=== PATIENT | male | born 1955 | race Caucasian/White ===

== ENCOUNTER 2018-09-03 01:12 | Observation (INO) | payer OTHER ==
[~2018-09-03] VITALS: Ht 165.1 cm; Wt 71.0 kg
[2018-09-03] VITALS (14 sets, daily range): BP systolic 123–169; BP diastolic 66–83; PULSE 81–93; RESP 18–20; Ht 165.1 cm; Wt 71.0 kg
[2018-09-03] MEDS ORDERED: GLUCOSE GEL 15 GRAM TUBE PO PRN ×2 (06:00)
[2018-09-03] MEDS ORDERED: ACETAMINOPHEN 325 MG TAB PO PRN (06:00)
[2018-09-03] MEDS ORDERED: DEXTROSE 50% 50 ML SYRINGE IV PRN ×2 (06:00)
[2018-09-03] MEDS ORDERED: GLUCOSE GEL 15 GRAM TUBE BUCCAL PRN (06:00)
[2018-09-03] MEDS ORDERED: GLUCAGON 1 MG INJ IM PRN (06:00)
[2018-09-03] MEDS ORDERED: NACL 0.9% 3 ML SYG IV SCH (06:00)
[2018-09-03] MEDS ORDERED: ONDANSETRON 4 MG INJ IV PRN (06:00)
--- NOTE | 2018-09-03 06:38 | HP ---
Date/Time of Note Date/Time of Note DATE: 09/03/18 TIME: 06:28 Assessment/Plan VTE Prophylaxis SCD applied (from Nsg): Yes Pharmacological prophylaxis: NA/contraindicated Pharm contraindication: low risk/ambulating Assessment/Plan Hospital Course This is a 62-year-old male being admitted to the telemetry floor for observation for: #1 multiple episodes of syncope: Neurocardiogenic versus cardiogenic versus orthostatic versus hyperglycemia versus secondary to EtOH: Patient did present with elevated blood sugars and sodium of 127. Upon repeat patient's blood sugars did improve and patient sodium did increase as well. At the current time will monitor the patient on telemetry. Will check an EKG in the a.m. Will farshad ck repeat CBC and BMP. Given the fact that the patient's sodium did increase from 127-135 and a period of what appears to be approximately 5 hours I will not start any other fluids at the current time. Monitor the patient closely. Will check an echocardiogram. Check orthostatic vitals. Check carotid Dopplers. We will also monitor for EtOH withdrawal and check ethanol level. Fall precautions. #2 Uncontrolled diabetes mellitus: Patient did present with blood sugars in the 300s. Will check hemoglobin A1c. Insulin sliding scale. Initiate blood sugar regimen if indicated. #3 dehydration: Secondary possibly to elevated blood sugars and/or alcohol use. Patient did receive IV fluid hydration at the transfer facility. At the current time will not give any further IV fluids given that the fact that the patient's sodium did correct fairly quickly. Carb controlled diet. #4 hyponatremia: Patient did initially present with a sodium of 127 which then subsequently corrected to 135 and approximately 5 hours. Will repeat labs at the current time. Will avoid any further IV fluids at the current time. #5 EtOH abuse: While patient reports that he only drinks twice a week he does report that he drinks two 40ounce beers when he does drink. Will check ethanol level. Thiamine folate MVI. PRN Ativan monitor for signs of withdrawal and consider Librium if indicated #6 DVT GI prophylaxis: SCDs, no GI prophylaxis indicated Further treatment strategy will be implemented as per the clinical course HPI/ROS Admit Date/Time Admit Date/Time Sep 03, 2018 at 04:32 Hx of Present Illness Chief complaint: Syncope This is a 62-year-old male with a past medical history of diabetes mellitus who presented to [facility] with symptoms of syncope. Patient reported that he had woken up and felt lightheaded and then ended up having 3 episodes of syncope. He reports that he lost consciousness for a few minutes and after that it took him a few minutes to be back to normal. He did report that prior to having the syncopal episode he did experience some lightheadedness and some shortness of breath with some pleuritic chest pain. He does report though that he has occasional chest pain and shortness of breath which are chronic. He denies any nausea vomiting or chest pressure or feelings of warmth. Denies any recent bleeding or nausea vomiting or hematochezia or melena. Upon further questioning at the bedside I did asked the patient regarding the exact episodes. Patient reports that one episode occurred as he got up from his bed and then he fell. The second episode occurred after he had urinated. He does not recall the third episode. He does report that he drinks approximately twice a week approximately two 40ounce beers. He did report that he was drinking yesterday as well. He does have a history of withdrawing from alcohol as well. He also has not been on his medications for diabetes as he has not gone back to his primary care doctor. Vitals at the transfer facility showed temperature of 96.3 Celsius/heart rate 81/respirations 18/BP 131/64/oxygen 97% on room air EKG: Normal sinus rhythm at 76 bpm, no ST or T wave changes. Old Q waves. As per ED physician documentation Chest x-rays did not show any consolidation or effusions. CT of the head: Was negative for bleed as per documentation Pertinent laboratory findings: Initial sodium was 127 followed by repeat of sodium 135 potassium 3.7 creatinine 0.62 Initial glucose 388 followed by a repeat glucose 223 D-dimer less than 0.28 TSH 2.07 urine glucose 1 greater than 1000 CBC hemoglobin 12.2/hematocrit 36.8 MCV 95.3 and platelets 253 Urinalysis: Ketones negative BNP 31 bicarb 18 Allergies: NKDA Medications: None ROS Const: As per HPI Eyes : No pain discharge or redness or change in visual acuity ENT: No pain, sore throat, congestion, congestion, dysphagia or discharge Respiratory: No shortness of breath, cough, sputum, wheezing, or pleuritic pain Cardiovascular: No chest pain, palpitation, PND, or edema GI : no change in appetite, abdominal pain, nausea, vomiting, diarrhea, constipation, or change in the color his stool Genitourinary: No dysuria, hematuria, flank pain , discharge or CVA tenderness Musculoskeletal: No joint pain, back pain, neck pain, restricted range of motion in neck or joints Skin: No rash, bruising or hives Neuro: As per HPI Endocrine: No polyuria, polydipsia, temperature intolerance Psych: No hallucination, depression, anxiety or suicidal ideation PMH/Family/Social Past Medical History Diabetes mellitus Medications Current Medications IV Flush (NS 3 ml) 3 ml PER PROTOCOL IV ; Start 09/03/18 at 06:00 Ondansetron HCl (Zofran Inj) 4 mg Q6H PRN IV NAUSEA/VOMITING; Start 09/03/18 at 06:00 Acetaminophen (Tylenol Tab) 650 mg Q6H PRN PO .PAIN 1-3 OR TEMP; Start 09/03/18 at 06:00 Diagnostic Test (Pha) (Accu-Chek) 1 ea 02 XX ; Start 09/04/18 at 02:00 Insulin Aspart (Novolog Insulin Pen) NOVOLOG *MILD* ALGORITHM WITH MEALS BEDTIME SC ; Start 09/03/18 at 08:00 Miscellaneous Information 1 ea NOTE XX ; Start 09/03/18 at 06:00 Glucose (Glutose) 15 gm Q15M PRN PO DECREASED GLUCOSE; Start 09/03/18 at 06:00 Glucose (Glutose) 22.5 gm Q15M PRN PO DECREASED GLUCOSE; Start 09/03/18 at 06:00 Dextrose (D50w Syringe) 25 ml Q15M PRN IV DECREASED GLUCOSE; Start 09/03/18 at 06:00 Dextrose (D50w Syringe) 50 ml Q15M PRN IV DECREASED GLUCOSE; Start 09/03/18 at 06:00 Glucagon (Glucagen) 1 mg Q15M PRN IM DECREASED GLUCOSE; Start 09/03/18 at 06:00 Glucose (Glutose) 15 gm Q15M PRN BUCCAL DECREASED GLUCOSE; Start 09/03/18 at 06:00 Coded Allergies: No Known Allergies (Verified Allergy, Mild, 12/04/10) Past Surgical History Past Surgical Hx: no surgical history Family History Significant Family History: no pertinent family hx Social History Alcohol Use: heavy Smoking Status: Never smoker Drug Use: none Exam/Review of Systems Vital Signs Vitals Vital Signs Date Temp Pulse Resp B/P (MAP) Pulse Ox O2 O2 Flow FiO2 Time Delivery Rate 09/03/18 93 146/73 06:12 (97) 09/03/18 98.4 20 95 Room Air 05:18 Exam Exam General: Currently sitting upright in bed in no acute distress HEENT: Atraumatic, normocephalic. The pupils are equal, round and reactive. Extraocular motor are intact Neck: Supple with full range of motion. No rigidity or meningismus Chest: Nontender Lungs: Clear to auscultation bilaterally no crackles rales or wheezing Heart: Normal S1-S2, Regular rhythm and rate. Abdomen: Soft , nontender, nondistended , bowel sounds are present. No guarding no rebound tenderness , No masses or organomegaly. No costovertebral temporal angle mass Extremities: Normal to inspection, no edema no cyanosis Neurologic: Normal mental status, speech normal, cranial nerves II through XII are intact, motor and sensory are intact, no focal weakness Psych: At the current time does not appear to be tremulous or anxious. VALERIA CORTES Sep 03, 2018 06:38
[2018-09-03] MEDS ORDERED: LORAZEPAM 2 MG INJ IV PRN (07:30)
[2018-09-03] MEDS: INSULIN ASPART [NOVOLOG] 3 ML PEN SC SCH ×4 (07:51→19:49)
[2018-09-03] MEDS: FOLIC ACID 1 MG TAB PO SCH (08:40)
[2018-09-03] MEDS: MULTIVITAMINS THERAPEUTIC TAB PO SCH (08:41)
[2018-09-03] MEDS ORDERED: THIAMINE 200 MG INJ IV SCH (09:00)
[2018-09-03] MEDS: THIAMINE 200 MG in SOD CHLORIDE 0.9% 100 ML IV SCH (09:51)
--- NOTE | 2018-09-03 10:28 | PN ---
Date/Time of Note Date/Time of Note DATE: 09/03/18 TIME: 10:25 Assessment/Plan VTE Prophylaxis Risk score (from Ns)>0 risk: 3 SCD applied (from Nsg): Yes Pharmacological prophylaxis: heparin Lines/Catheters IV Catheter Type (from Nrs): Saline Lock Urinary Cath still in place: No Assessment/Plan Hospital Course 62 yo male with uncontrolled DMII who presents with syncope, LISTE and hypo natremia Syncope: - Clearly orthostatic by history and with evidence of hypovolemia pre-disposing him to this. Troponin and d-dimer negative - Ok to monitor on telemetry 24 hours DMII with hyperglycemia: - Will start on oral agents: meformin and glimepiride and monitor LISET; - Resolved with fluids Hyponatremia: - Resolved with fluids Jose sullivan home tomorrow Result Diagram: 09/03/18 0554 09/03/18 0554 Results 24hrs Laboratory Tests Test 09/03/18 05:52 09/03/18 05:54 09/03/18 07:46 Ethyl Alcohol Level 11.0 H White Blood Count 7.2 Red Blood Count 3.96 L Hemoglobin 12.3 L Hematocrit 36.0 L Mean Corpuscular Volume 90.9 Mean Corpuscular Hemoglobin 31.1 Mean Corpuscular Hemoglobin Concent 34.2 Red Cell Distribution Width 11.8 Platelet Count 272 Mean Platelet Volume 10.0 Immature Granulocytes % 0.300 Neutrophils % 68.8 Lymphocytes % 20.0 Monocytes % 8.6 Eosinophils % 1.9 Basophils % 0.4 Nucleated Red Blood Cells % 0.0 Immature Granulocytes # 0.020 Neutrophils # 5.0 Lymphocytes # 1.4 Monocytes # 0.6 Eosinophils # 0.1 Basophils # 0.0 Nucleated Red Blood Cells # 0.0 Sodium Level 141 Potassium Level 4.2 Chloride Level 102 Carbon Dioxide Level 27 Anion Gap 12 Blood Urea Nitrogen 5 L Creatinine 0.64 Est Glomerular Filtrat Rate mL/min > 60 Glucose Level 271 H Hemoglobin A1c 11.8 H Calcium Level 8.9 Magnesium Level 1.9 Total Bilirubin 0.1 L Direct Bilirubin 0.00 Indirect Bilirubin 0.1 Aspartate Amino Transf (AST/SGOT) 49 H Alanine Aminotransferase (ALT/SGPT) 22 Alkaline Phosphatase 121 Total Protein 8.9 H Albumin 4.3 Globulin 4.60 H Albumin/Globulin Ratio 0.93 Triglycerides Level 216 H Cholesterol Level 188 LDL Cholesterol, Calculated 96 HDL Cholesterol 49 Cholesterol/HDL Ratio 3.8 Thyroid Stimulating Hormone (TSH) Pending Bedside Glucose 247 H Subjective 24 Hr Interval Summary Free Text/Dictation Orthostastic symptoms have resolved I discussed DM with him at [facility]. Has been off of medications as lost to medical care. Says he was on insluin a few years ago, then changed to orals only. Reports polydipsia, polyuria recently Exam/Review of Systems Exam Vitals Vital Signs Date Temp Pulse Resp B/P (MAP) Pulse Ox O2 O2 Flow FiO2 Time Delivery Rate 09/03/18 86 08:00 09/03/18 98.5 19 157/81 100 07:47 (106) 09/03/18 Room Air 05:18 Intake and Output 09/02/18 09/02/18 09/03/18 1515:00 23:00 07:00 IntakeIntake Total 200 ml OutputOutput Total 500 ml BalanceBalance -300 ml Constitutional: alert, oriented, well developed Psych: no complaints, nl mood/affect Head: normocephalic, atraumatic Eyes: nl conjunctiva, EOMI, nl lids, nl sclera, PERRL ENMT: nl external ears & nose, nl lips & teeth, nl nasal mucosa & septum Neck: supple, non-tender Respiratory: clear to auscultation, normal air movement Cardiovascular: regular rate and rhythm, nl pulses Gastrointestinal: soft, nl liver, spleen, non-tender Musculoskeletal: nl extremities to inspection, nl gait and stance Extremities: normal pulses Neurological: OIL PROCESS STILLMAN II-XII intact, nl mental status, nl speech, nl strength Skin: nl turgor; No rash or lesions Lymph: nl lymph nodes Results Results 24hrs Laboratory Tests Test 09/03/18 05:52 09/03/18 05:54 09/03/18 07:46 Ethyl Alcohol Level 11.0 H White Blood Count 7.2 Red Blood Count 3.96 L Hemoglobin 12.3 L Hematocrit 36.0 L Mean Corpuscular Volume 90.9 Mean Corpuscular Hemoglobin 31.1 Mean Corpuscular Hemoglobin Concent 34.2 Red Cell Distribution Width 11.8 Platelet Count 272 Mean Platelet Volume 10.0 Immature Granulocytes % 0.300 Neutrophils % 68.8 Lymphocytes % 20.0 Monocytes % 8.6 Eosinophils % 1.9 Basophils % 0.4 Nucleated Red Blood Cells % 0.0 Immature Granulocytes # 0.020 Neutrophils # 5.0 Lymphocytes # 1.4 Monocytes # 0.6 Eosinophils # 0.1 Basophils # 0.0 Nucleated Red Blood Cells # 0.0 Sodium Level 141 Potassium Level 4.2 Chloride Level 102 Carbon Dioxide Level 27 Anion Gap 12 Blood Urea Nitrogen 5 L Creatinine 0.64 Est Glomerular Filtrat Rate mL/min > 60 Glucose Level 271 H Hemoglobin A1c 11.8 H Calcium Level 8.9 Magnesium Level 1.9 Total Bilirubin 0.1 L Direct Bilirubin 0.00 Indirect Bilirubin 0.1 Aspartate Amino Transf (AST/SGOT) 49 H Alanine Aminotransferase (ALT/SGPT) 22 Alkaline Phosphatase 121 Total Protein 8.9 H Albumin 4.3 Globulin 4.60 H Albumin/Globulin Ratio 0.93 Triglycerides Level 216 H Cholesterol Level 188 LDL Cholesterol, Calculated 96 HDL Cholesterol 49 Cholesterol/HDL Ratio 3.8 Thyroid Stimulating Hormone (TSH) Pending Bedside Glucose 247 H Medications Medication Current Medications IV Flush (NS 3 ml) 3 ml PER PROTOCOL IV ; Start 09/03/18 at 06:00 Ondansetron HCl (Zofran Inj) 4 mg Q6H PRN IV NAUSEA/VOMITING; Start 09/03/18 at 06:00 Acetaminophen (Tylenol Tab) 650 mg Q6H PRN PO .PAIN 1-3 OR TEMP; Start 09/03/18 at 06:00 Diagnostic Test (Pha) (Accu-Chek) 1 ea 02 XX ; Start 09/04/18 at 02:00 Insulin Aspart (Novolog Insulin Pen) NOVOLOG *MILD* ALGORITHM WITH MEALS BEDTIME SC Last administered on 09/03/18at 07:51; Admin Dose 3 UNIT; Start 09/03/18 at 08:00 Miscellaneous Information 1 ea NOTE XX ; Start 09/03/18 at 06:00 Glucose (Glutose) 15 gm Q15M PRN PO DECREASED GLUCOSE; Start 09/03/18 at 06:00 Glucose (Glutose) 22.5 gm Q15M PRN PO DECREASED GLUCOSE; Start 09/03/18 at 06:00 Dextrose (D50w Syringe) 25 ml Q15M PRN IV DECREASED GLUCOSE; Start 09/03/18 at 06:00 Dextrose (D50w Syringe) 50 ml Q15M PRN IV DECREASED GLUCOSE; Start 09/03/18 at 06:00 Glucagon (Glucagen) 1 mg Q15M PRN IM DECREASED GLUCOSE; Start 09/03/18 at 06:00 Glucose (Glutose) 15 gm Q15M PRN BUCCAL DECREASED GLUCOSE; Start 09/03/18 at 06:00 Multivitamins Therapeutic (Theragran) 1 tab DAILY PO Last administered on 09/03/18at 08:41; Admin Dose 1 TAB; Start 09/03/18 at 09:00 Folic Acid (Folic Acid) 1 mg DAILY PO Last administered on 09/03/18at 08:40; Admin Dose 1 MG; Start 09/03/18 at 09:00 Thiamine HCl 200 mg/Sodium Chloride 102 ml @ 100 mls/hr DAILY IV Last administered on 09/03/18at 09:51; Admin Dose 100 MLS/HR; Start 09/03/18 at 09:00; Stop 09/07/18 at 10:02 Lorazepam (Ativan) 1 mg Q4H PRN IV CONTROL WITHDRAWAL SYMPTOMS; Start 09/03/18 at 07:30 CARMELA RUIZ MD Sep 03, 2018 10:28
[2018-09-03] MEDS: metFORMIN 500 MG TAB PO SCH ×2 (12:29→17:24)
[2018-09-03] MEDS: GLIMEPIRIDE 2 MG TAB PO SCH (12:30)
--- NOTE | 2018-09-03 16:42 | RADRPT ---
Echocardiogram Report Patient Name: MARVA PATTERSONPatient ID: [id number] : 1955 (62y 11m)Study Date: 09/03/2018 7:31:18 AM Gender: MAccession #: [id number] Tech: [place] Location: Ref.Physician: VALERIA CORTES Height(Cm): BSA: Weight(Kg): Quality: AdequateAccount #: Procedures: Echocardiographic Report: Transthoracic echocardiogram with complete 2D, M-Mode, and doppler examination. Indications: Syncope. Measurements: 2D/M Mode Doppler Measurement Value Normal Range Measurement Value Normal Range LVIDd 2D 4.0 [ 4.2 - 5.8 ] cm AV Peak David 1.6 [ 100.0 - 170.0 ] cm/sec LVIDs 2D 2.0 [ 2.5 - 4.0 ] cm AV Peak PG 10.0 [ 2.0 - 9.0 ] mmHg IVSd 2D 1.0 [ 0.6 - 1.0 ] cm AI Peak PG 54.0 mmHg AoR Diam 2D 2.6 [ 2.6 - 3.4 ] cm AI Peak David 3.7 cm/sec LA Dimen 2D 2.9 [ 3.0 - 4.0 ] cm AI PHT 490.0 msec MV E Peak David 0.7 [ 60.0 - 130.0 ] cm/sec MV A Peak David 1.0 [ 100.0 - 120.0 ] cm/sec MV E/A 0.7 [ 0.8 - 1.5 ] ratio MV Decel Time 254 [ 104 - 258 ] msec MV E/A 0.7 [ 0.8 - 1.5 ] ratio TR Peak David 2.6 [ 100.0 - 280.0 ] cm/sec TR Peak PG 27.0 mmHg RVSP 30.0 [ 10.0 - 36.0 ] mmHg RA Pressure 3.0 mmHg Findings: Left Ventricle: Normal left ventricular systolic function. Normal left ventricular cavity size. Mild concentric left ventricular hypertrophy. Ejection fraction is visually estimated at 55 %. Tissue Doppler/Mitral Doppler indices are consistent with impaired relaxation (Stage I diastolic dysfunction). Right Ventricle: Normal right ventricular size. Normal right ventricular systolic function. Left Atrium: The left atrium is normal in size. Right Atrium: The right atrium is normal in size. Mitral Valve: Normal appearance and function of the mitral valve with trace physiologic regurgitation. Mitral valve leaflets appear mildly thickened. Mild mitral annular calcification. Trace mitral regurgitation. Aortic Valve: Normal appearance of the aortic valve. No significant aortic stenosis or insufficiency. No hemodynamically significant aortic stenosis by doppler. Aortic cusps appear mildly calcified. Mild aortic valve regurgitation. Tricuspid Valve: Normal appearance of the tricuspid valve. Estimated peak PA systolic pressure 30 mmHg. There is trace tricuspid regurgitation. Pulmonic Valve: Normal pulmonic valve appearance. Pericardium: Normal pericardium with no significant pericardial effusion. Aorta: Normal aortic root. IVC: Normal size and normal respiratory collapse consistent with normal right atrial pressure. Conclusions: Normal left ventricular systolic function. Normal left ventricular cavity size. Mild concentric left ventricular hypertrophy. Ejection fraction is visually estimated at 55 %. Tissue Doppler/Mitral Doppler indices are consistent with impaired relaxation (Stage I diastolic dysfunction). Normal appearance and function of the mitral valve with trace physiologic regurgitation. Mitral valve leaflets appear mildly thickened. Mild mitral annular calcification. Trace mitral regurgitation. Normal appearance of the aortic valve. No significant aortic stenosis or insufficiency. No hemodynamically significant aortic stenosis by doppler. Aortic cusps appear mildly calcified. Mild aortic valve regurgitation. Normal appearance of the tricuspid valve. Estimated peak PA systolic pressure 30 mmHg. There is trace tricuspid regurgitation. Electronically Signed By: Arturo Pate 2018-09-03 16:41:50 PST
[2018-09-04] VITALS (10 sets, daily range): BP systolic 115–131; BP diastolic 63–76; PULSE 72–84; RESP 18–19
[2018-09-04] MEDS: ACCU-CHEK XX SCH (02:00)
[2018-09-04] MEDS: FOLIC ACID 1 MG TAB PO SCH (07:52)
[2018-09-04] MEDS: metFORMIN 500 MG TAB PO SCH ×2 (07:52→16:54)
[2018-09-04] MEDS: MULTIVITAMINS THERAPEUTIC TAB PO SCH (07:52)
[2018-09-04] MEDS: GLIMEPIRIDE 2 MG TAB PO SCH (07:52)
[2018-09-04] MEDS: THIAMINE 200 MG in SOD CHLORIDE 0.9% 100 ML IV SCH (07:54)
[2018-09-04] MEDS: INSULIN ASPART [NOVOLOG] 3 ML PEN SC SCH ×4 (07:55→19:46)
--- NOTE | 2018-09-04 08:38 | RADRPT ---
Vent Rate: 86 bpm RR Interval: 0 msec RI Interval: 146 msec QRS Duration: 98 msec QT Interval: 384 msec QTC Interval: 459 msec P-R-T [place]: 54 - 57 - 49 degrees Normal sinus rhythm Normal ECG Electronically Signed By: Emre Ding
--- NOTE | 2018-09-04 12:52 | PN ---
Date/Time of Note Date/Time of Note DATE: 09/04/18 TIME: 12:35 Assessment/Plan VTE Prophylaxis Risk score (from Nsg)>0 risk: 2 SCD applied (from Ns): Yes Pharmacological prophylaxis: other Pharm contraindication: low risk/ambulating Lines/Catheters IV Catheter Type (from Nrsg): Saline Lock Urinary Cath still in place: No Assessment/Plan Assessment/Plan 1. Near syncope. About 5 pm after he had dinner, patient was laying on bed watching TV, then he got up to bathroom. He fell face down to the floor next to the bed, without loss of consciousness but felt weak and dizzy. He managed to the bathroom and had a bowel movement, then he fell to again when he tried to get up, again no loss of b=consciousness. He was too weak to get up. His was with him. He had 48 ouces of beer that day with alcohol level 11. negative carotid US, awaiting for echo 2. DM, better controlled 3. HTN, controlled 4. EtOH abuse, alcohol level was 11 on 09/03/2018 5. DVT GI prophylaxis: SCDs Result Diagram: 09/03/18 0554 09/03/18 0554 Results 24hrs Laboratory Tests Test 09/03/18 17:14 09/03/18 19:48 09/04/18 07:54 09/04/18 11:56 Bedside Glucose 194 185 140 161 Subjective 24 Hr Interval Summary Free Text/Dictation no complaint Exam/Review of Systems Exam Vitals Vital Signs Date Temp Pulse Resp B/P (MAP) Pulse Ox O2 O2 Flow FiO2 Time Delivery Rate 09/04/18 98.0 74 19 115/70 96 11:24 (85) 09/04/18 Room Air 04:02 Intake and Output 09/03/18 09/03/18 09/04/18 1515:00 23:00 07:00 IntakeIntake Total 700 ml 400 ml BalanceBalance 700 ml 400 ml Constitutional: alert, oriented, well developed Psych: no complaints, nl mood/affect Head: normocephalic, atraumatic Eyes: nl conjunctiva, EOMI, nl lids ENMT: nl external ears & nose, nl lips & teeth, nl nasal mucosa & septum Neck: supple, non-tender Respiratory: clear to auscultation, normal air movement; No congested cough, No crackles/rales, No diminished breath sounds, No intercostal retraction, No labored breathing, No respirations, No tactile fremitus, No wheezing, No other Cardiovascular: regular rate and rhythm, nl pulses; No bruits, No diastolic murmur, No edema, No gallop, No irregular rhythm, No jugular venous distention (JVD), No murmurs/extra sounds, No rub, No systolic murmur, No S3, No S4, No other Gastrointestinal: soft, nl liver, spleen, non-tender; No ascites, No bowel sounds, No distended, No firm, No hepatomegaly, No mass, No rebound or guarding, No splenomegaly, No surgical scars, No tender, No other Musculoskeletal: nl extremities to inspection Extremities: normal pulses; No calf tenderness, No cyanosis, No clubbing, No edema, No pitting pedal edema, No palpable cord, No tenderness, No other Neurological: LINER ASSEMBLER II-XII intact, nl mental status, nl speech, nl strength Results Results 24hrs Laboratory Tests Test 09/03/18 17:14 09/03/18 19:48 09/04/18 07:54 09/04/18 11:56 Bedside Glucose 194 185 140 161 Medications Medication Current Medications IV Flush (NS 3 ml) 3 ml PER PROTOCOL IV ; Start 09/03/18 at 06:00 Ondansetron HCl (Zofran Inj) 4 mg Q6H PRN IV NAUSEA/VOMITING; Start 09/03/18 at 06:00 Acetaminophen (Tylenol Tab) 650 mg Q6H PRN PO .PAIN 1-3 OR TEMP; Start 09/03/18 at 06:00 Diagnostic Test (Pha) (Accu-Chek) 1 ea 02 XX ; Start 09/04/18 at 02:00 Insulin Aspart (Novolog Insulin Pen) NOVOLOG *MILD* ALGORITHM WITH MEALS BEDTIME SC Last administered on 09/04/18at 12:04; Admin Dose 1 UNIT; Start 09/03/18 at 08:00 Miscellaneous Information 1 ea NOTE XX ; Start 09/03/18 at 06:00 Glucose (Glutose) 15 gm Q15M PRN PO DECREASED GLUCOSE; Start 09/03/18 at 06:00 Glucose (Glutose) 22.5 gm Q15M PRN PO DECREASED GLUCOSE; Start 09/03/18 at 06:00 Dextrose (D50w Syringe) 25 ml Q15M PRN IV DECREASED GLUCOSE; Start 09/03/18 at 06:00 Dextrose (D50w Syringe) 50 ml Q15M PRN IV DECREASED GLUCOSE; Start 09/03/18 at 06:00 Glucagon (Glucagen) 1 mg Q15M PRN IM DECREASED GLUCOSE; Start 09/03/18 at 06:00 Glucose (Glutose) 15 gm Q15M PRN BUCCAL DECREASED GLUCOSE; Start 09/03/18 at 06:00 Multivitamins Therapeutic (Theragran) 1 tab DAILY PO Last administered on 09/04/18 07:52; Admin Dose 1 TAB; Start 09/03/18 at 09:00 Folic Acid (Folic Acid) 1 mg DAILY PO Last administered on 09/04/18 07:52; Admin Dose 1 MG; Start 09/03/18 at 09:00 Thiamine HCl 200 mg/Sodium Chloride 102 ml @ 100 mls/hr DAILY IV Last administered on 09/04/18 07:54; Admin Dose 100 MLS/HR; Start 09/03/18 at 09:00; Stop 09/07/18 at 10:02 Lorazepam (Ativan) 1 mg Q4H PRN IV CONTROL WITHDRAWAL SYMPTOMS; Start 09/03/18 at 07:30 Metformin HCl (Glucophage) 1,000 mg BID WITH MEALS PO Last administered on 09/04/18 07:52; Admin Dose 1,000 MG; Start 09/03/18 at 10:30 Glimepiride (Amaryl) 2 mg AC BREAKFAST PO Last administered on 09/04/18 07:52; Admin Dose 2 MG; Start 09/03/18 at 10:30 THUAN GUTIERRES MD Sep 04, 2018 12:50
[2018-09-05] VITALS: PULSE 76
[2018-09-05] MEDS: ACCU-CHEK XX SCH (02:00)
[2018-09-05 04:00] VITALS: PULSE 73
[2018-09-05] MEDS: GLIMEPIRIDE 2 MG TAB PO SCH ×2 (06:05→07:40)
[2018-09-05 07:33] VITALS: BP 122/73; PULSE 81; RESP 19
[2018-09-05] MEDS: FOLIC ACID 1 MG TAB PO SCH (07:40)
[2018-09-05] MEDS: MULTIVITAMINS THERAPEUTIC TAB PO SCH (07:40)
[2018-09-05] MEDS: metFORMIN 500 MG TAB PO SCH (07:40)
[2018-09-05] MEDS: THIAMINE 200 MG in SOD CHLORIDE 0.9% 100 ML IV SCH (07:40)
[2018-09-05] MEDS: INSULIN ASPART [NOVOLOG] 3 ML PEN SC SCH ×2 (07:58→11:53)
[2018-09-05 08:18] VITALS: PULSE 81
[2018-09-05 11:16] VITALS: BP 109/62; PULSE 76; RESP 19
[2018-09-05 12:27] VITALS: PULSE 81
[2018-09-05] MEDS ORDERED: METF-849 PO (14:06)
[2018-09-05] MEDS ORDERED: GLIM2TAB47 PO (14:06)
--- NOTE | 2018-09-05 14:11 | DS ---
Date/Time of Note Date/Time of Note DATE: 09/05/18 TIME: 14:07 Discharge Summary Admission/Discharge Info Admit Date/Time Sep 03, 2018 at 04:32 Discharge Date/Time Discharge Diagnosis 1. Near syncope, dehydration related, resolved 2. DM, better controlled 3. HTN, controlled 4. EtOH abuse, alcohol level was 11 on 09/03/2018 Patient Condition: Stable Procedures Echocardiogram Report Patient Name: MARVA PATTERSON : 1955 (62y 11m) Study Date: 09/03/2018 7:31:18 AM Gender: M Tech: DC Location: Ref.Physician: VALERIA CORTES Height(Cm): BSA: Weight(Kg): Quality: Adequate Account #: Procedures: Echocardiographic Report: Transthoracic echocardiogram with complete 2D, M-Mode, and doppler examination. Indications: Syncope. Measurements: 2D/M Mode Doppler Measurement Value Normal Range Measurement Value Normal Range LVIDd 2D 4.0 [ 4.2 - 5.8 ] cm AV Peak David 1.6 [ 100.0 - 170.0 ] cm/sec LVIDs 2D 2.0 [ 2.5 - 4.0 ] cm AV Peak PG 10.0 [ 2.0 - 9.0 ] mmHg IVSd 2D 1.0 [ 0.6 - 1.0 ] cm AI Peak PG 54.0 mmHg AoR Diam 2D 2.6 [ 2.6 - 3.4 ] cm AI Peak David 3.7 cm/sec LA Dimen 2D 2.9 [ 3.0 - 4.0 ] cm AI PHT 490.0 msec MV E Peak David 0.7 [ 60.0 - 130.0 ] cm/sec MV A Peak David 1.0 [ 100.0 - 120.0 ] cm/sec MV E/A 0.7 [ 0.8 - 1.5 ] ratio MV Decel Time 254 [ 104 - 258 ] msec MV E/A 0.7 [ 0.8 - 1.5 ] ratio TR Peak David 2.6 [ 100.0 - 280.0 ] cm/sec TR Peak PG 27.0 mmHg RVSP 30.0 [ 10.0 - 36.0 ] mmHg RA Pressure 3.0 mmHg Findings: Left Ventricle: Normal left ventricular systolic function. Normal left ventricular cavity size. Mild concentric left ventricular hypertrophy. Ejection fraction is visually estimated at 55 %. Tissue Doppler/Mitral Doppler indices are consistent with impaired relaxation (Stage I diastolic dysfunction). Right Ventricle: Normal right ventricular size. Normal right ventricular systolic function. Left Atrium: The left atrium is normal in size. Right Atrium: The right atrium is normal in size. Mitral Valve: Normal appearance and function of the mitral valve with trace physiologic regurgitation. Mitral valve leaflets appear mildly thickened. Mild mitral annular calcification. Trace mitral regurgitation. Aortic Valve: Normal appearance of the aortic valve. No significant aortic stenosis or insufficiency. No hemodynamically significant aortic stenosis by doppler. Aortic cusps appear mildly calcified. Mild aortic valve regurgitation. Tricuspid Valve: Normal appearance of the tricuspid valve. Estimated peak PA systolic pressure 30 mmHg. There is trace tricuspid regurgitation. Pulmonic Valve: Normal pulmonic valve appearance. Pericardium: Normal pericardium with no significant pericardial effusion. Aorta: Normal aortic root. IVC: Normal size and normal respiratory collapse consistent with normal right atrial pressure. Conclusions: Normal left ventricular systolic function. Normal left ventricular cavity size. Mild concentric left ventricular hypertrophy. Ejection fraction is visually estimated at 55 %. Tissue Doppler/Mitral Doppler indices are consistent with impaired relaxation (Stage I diastolic dysfunction). Normal appearance and function of the mitral valve with trace physiologic regurgitation. Mitral valve leaflets appear mildly thickened. Mild mitral annular calcification. Trace mitral regurgitation. Normal appearance of the aortic valve. No significant aortic stenosis or insufficiency. No hemodynamically significant aortic stenosis by doppler. Aortic cusps appear mildly calcified. Mild aortic valve regurgitation. Normal appearance of the tricuspid valve. Estimated peak PA systolic pressure 30 mmHg. There is trace tricuspid regurgitation. Electronically Signed By: Arturo Pate 2018-09-03 16:41:50 [facility] Hospital Course 62 years old male came in after 2 near syncope spells. On the admission day, bout 5 pm after he had dinner, patient was laying on bed watching TV, then he got up to bathroom. He fell face down to the floor next to the bed, without loss of consciousness but felt weak and dizzy. He managed to the bathroom and had a bowel movement, then he fell to again when he tried to get up, again no loss of consciousness. He was too weak to get up. His was with him. He had 48 ouces of beer that day with alcohol level 11. negative carotid US, echocardiography is unremarkable. The near syncopal spells are considered dehydration from ETOH related. Symptoms totally resolved and no similar event after admission. Patient is advised to stop ETOH. Patient is diabetic that he is put on metformin and Amaryl. He is instructed to follow up with PCP to adjust DM treatment. Home Meds Active Scripts Metformin* (Glucophage*) 500 Mg Tab, 1000 MG PO BID WITH MEALS for 30 Days, TAB Prov:THUAN GUTIERRES MD 09/05/18 Glimepiride* (Amaryl*) 2 Mg Tablet, 2 MG PO AC BREAKFAST for 30 Days, TAB Prov:THUAN GUTIERRES MD 09/05/18 Follow-up Plan PCP in one week Primary Care Provider Not On Staff Doctor Pending Labs Laboratory Tests Test 09/04/18 16:53 09/04/18 19:46 09/05/18 05:54 09/05/18 07:25 Bedside 206 163 159 171 Glucose mg/dL (70-220) mg/dL (70-220) mg/dL (70-220) mg/dL (70-220) Test 09/05/18 11:45 Bedside 245 Glucose mg/dL (70-220) THUAN GUTIERRES MD Sep 05, 2018 14:11
== END 2018-09-05 14:00 | disposition home or self-care (01) ==
LOC: INTOOBSV 04:32 → 6WM 04:32
PROVIDERS: ADMIT Family Medicine; ATTEND Internal Medicine
DX: R55 Syncope and collapse (principal); E11.9 Type 2 diabetes mellitus without complications; I10 Essential (primary) hypertension; F10.10 Alcohol abuse, uncomplicated; Y90.0 Blood alcohol level of less than 20 mg/100 ml; E11.65 Type 2 diabetes mellitus with hyperglycemia; Z79.4 Long term (current) use of insulin; E86.0 Dehydration; E87.1 Hypo-osmolality and hyponatremia
CPT/HCPCS: 71045; 80053; 80061; 80307; 82306; 82962; 83036; 83735; 84443; 85025; 93005; 93306; 93880; J1815; J3411; Z7500; Z7610; 99217; G0378